=== PATIENT | female | born 1985 | race Caucasian/White ===

== ENCOUNTER 2021-12-09 12:56 | Emergency (ER) | payer OTHER, SELFPAY ==
[2021-12-09 13:03] VITALS: BP 114/72; PULSE 82; RESP 16; TEMP 36.6; O2SAT 100
--- NOTE | 2021-12-09 13:10 | ED.SKABFB ---
HPI - Skin/Abscess/Foreign Bdy General Chief complaint: Skin/Abscess/Foreign Body Stated complaint: RASH Time Seen by Provider: 12/09/21 13:10 Source: patient, RN notes reviewed and old records reviewed Mode of arrival: ambulatory Limitations: no limitations History of Present Illness HPI narrative: 36 year old female who [facility] with complaints of working in the yard on Sunday and developing this rash on her bilateral arms which is very pruritic. She states that this morning she notes an area on her face under her nose. Patient has scattered red raised areas on her bilateral arms which are painful and itching, some larger yellowish areas on arms that appear to be hives. Patient has been taking Benadryl for the itching,and she has been applying steroid ointment to rash without resolution. Patient denies any difficulty with her breathing or with swallowing. MD complaint: rash Onset (ago): day(s) (3) Tetanus up to date: yes Location: LUE and RUE Severity: moderate Severity scale (1-10): 6 Quality: burning, aching and pruritic Pain Consistency: constant Relieving factors: none Context: other (working in yard) Treatments prior to arrival: Benadryl and other (topical steroid) Related Data Home Medications Medication Instructions Recorded Confirmed No Home Medications 12/09/21 12/09/21 Allergies Allergy/AdvReac Type Severity Reaction Status Date / Time No Known Allergies Allergy Unverified 03/09/20 08:14 Review of Systems Review of Systems: CONSTITUTIONAL: Denies fever, chills, or sweats. EYES: Denies visual changes, redness, or discharge. ENT: Denies rhinorrhea, congestion, sore throat, or otalgia. CARDIOVASCULAR: Denies chest pain, palpitations, or edema. RESPIRATORY: Denies cough or dyspnea. GASTROINTESTINAL: Denies abdominal pain, nausea, vomiting, or diarrhea. GENITOURINARY: Denies dysuria or hematuria. SKIN: Positive for burning and aching red raised rash on her bilateral forearms arms,yellowish hive type areas also on arms with itching. MUSCULOSKELETAL: Denies back pain, joint pain, or myalgia. NEUROLOGIC: Denies headache, numbness, or weakness. PSYCHIATRIC: Denies anxiety or depression. All systems reviewed & are unremarkable except as noted in HPI and below PMFSH Past Medical History Medical History (Updated 12/09/21 @ 13:23 by Roxana Chavarria NP) Numerous skin moles (~2003) Removed Surgical History Surgical History H/O section 2011, 2014 History of appendectomy (~2012) Family History Family History Mother Family history of malignant neoplasm of breast in first degree relative Family history of malignant neoplasm of breast Father Family history of allergic disorder Social History Social History Smoking status: Never smoker Alcohol intake: current Comments At time of signature, agree with nursing past medical, surgical, social and family history. There is no relevant family history pertinent to the presenting complaint Exam Narrative: GENERAL: Well-appearing, well-nourished, and in no acute distress. HEAD: Normocephalic, atraumatic. EYES: PERRLA and EOMI. ENT: Nares clear, no rhinorrhea or epistaxis. Mucous membranes moist.TM's normal with good light reflex, throat pink with no lesions or tonsil swelling no difficulty swallowing. NECK: Supple.no lymphadenopathy CHEST: Clear to auscultation. No respiratory distress.denies any shortness of breath, SAO2 100% on room air HEART: Regular rate and rhythm. No murmur heard. Normal peripheral pulses. ABDOMEN: Soft, nontender, nondistended, normal active bowel sounds. EXTREMITIES: Normal range of motion. No edema. SKIN: Warm, dry, raised red rash on forearms with some small pustule formation no drainage, small yellowish areas on arms that appear also to be hives
[2021-12-09] MEDS: methylPREDNISolone ACETATE 80 MG/ML VIAL IM (13:22)
== END 2021-12-09 13:50 | disposition home or self-care (01) ==
PROVIDERS: Emergency Provider Registered Nurse
DX: L23.7 Allergic contact dermatitis due to plants, except food (principal)
CPT/HCPCS: 96372; 99213; G0463; J1040